=== PATIENT | male | born 2000 | race Hispanic/Latino ===

== ENCOUNTER 2022-03-30 20:15 | Emergency (ER) | payer SELFPAY ==
[2022-03-30 23:22] LABS: Absolute Lymphocytes (CBC) 2.2 K/uL (0.7-4.9); Hematocrit 41.6 % (39.6-49.0); Lymphocytes % 24.7 % (15.3-44.8); MPV 9.2 fL (7.6-11.3); Protime INR 1.13; RBC Red Blood Cell Count 4.56 M/uL (4.33-5.43)
[2022-03-30 23:36] LABS: ALT/SGPT 20 U/L (12-78); AST/SGOT 16 U/L (15-37); Albumin 4.3 g/dL (3.4-5.0); Alkaline Phosphatase 77 U/L (45-117); BUN Blood Urea Nitrogen 17 mg/dL (7-18); Bicarbonate 27 mmol/L (21-32); Bilirubin Total 0.4 mg/dL (0.2-1.0); Glomerular Filtration Rate 113 ml/min (=/>90); Glucose Level 98 mg/dL (74-106); Magnesium 2.2 mg/dL (1.8-2.4); NT PRO-BNP 20 pg/mL (<125); Potassium 4.1 mmol/L (3.5-5.1); Protein, Total 7.3 g/dL (6.4-8.2); Sodium Level 139 mmol/L (136-145); Troponin High Sensitivity 33.9 pg/mL (<58.9)
[2022-03-30 23:43] LABS: Urine Blood Negative (Negative); Urine Glucose Negative (Negative); Urine Protein Trace (Negative); Urine Specific Gravity 1.025 (1.005-1.030)
[2022-03-30 23:46] LABS: Bilirubin Direct < 0.1 mg/dL (0-0.2)
[2022-03-31 00:01] LABS: Barbiturates NEGATIVE (NEGATIVE); Benzodiazepines NEGATIVE (NEGATIVE); Cocaine NEGATIVE (NEGATIVE); METHAMPHETAM NEGATIVE (NEGATIVE); Methadone NEGATIVE (NEGATIVE); Opiates NEGATIVE (NEGATIVE); Phencyclidine NEGATIVE (NEGATIVE); THC Cannibis NEGATIVE (NEGATIVE)
[2022-03-31 00:07] LABS: Creatine Phosphokinase 222 U/L (39-308)
[2022-03-31] MEDS ORDERED: KETOROLAC 30 MG/ML INJ ONE (00:20)
[2022-03-31] MEDS ORDERED: NA CHLORIDE 0.9% 1,000 ML ONE (00:21)
--- NOTE | 2022-03-31 02:45 | ER ---
Nurse's Notes [facility] Name: Deyvi Aceves Age: 21 yrs Sex: Male : 2000 Arrival Date: 03/30/2022 Time: 20:18 Bed 2 Private MD: Diagnosis: SARS-associated coronavirus as the cause of diseases classified elsewhere Presentation: 03/30 20:37 Chief complaint: Patient states: Chest pain radiates to back and SOB since this ld1 morning. Coronavirus screen: At this time, the client does not indicate any symptoms associated with coronavirus-19. Ebola Screen: No symptoms or risks identified at this time. Initial Sepsis Screen: Does the patient meet any 2 criteria? No. Patient's initial sepsis screen is negative. Does the patient have a suspected source of infection? No. Patient's initial sepsis screen is negative. Risk Assessment: Do you want to hurt yourself or someone else? Patient reports no desire to harm self or others. Onset of symptoms was March 30, 2022. 20:37 Method Of Arrival: Ambulatory ld1 20:37 Acuity: SHANA 3 ld1 Triage Assessment: 20:37 General: Appears in no apparent distress. comfortable, Behavior is calm, cooperative, ld1 appropriate for age. Pain: Complains of pain in chest Pain radiates to back Pain currently is 8 out of 10 on a pain scale. Quality of pain is described as pressure. EENT: No signs and/or symptoms were reported regarding the EENT system. Neuro: Level of Consciousness is awake, alert, obeys commands, Oriented to person, place, time, situation. Cardiovascular: Capillary refill < 3 seconds Patient's skin is warm and dry. Rhythm is sinus rhythm. Respiratory: Airway is patent Respiratory effort is even, unlabored. GI: Abdomen is flat, non-distended. Musculoskeletal: Reports pain in chest. Historical: - Allergies: 20:37 No Known Allergies; ld1 - Home Meds: 20:37 None [Active]; ld1 - PMHx: 20:37 None; ld1 - PSHx: 20:37 Appendectomy; ld1 - Immunization history:: Adult Immunizations up to date, Client reports receiving the 2nd dose of the Covid vaccine. - Social history:: Smoking status: Patient denies any tobacco usage or history of. Patient/guardian denies using alcohol. Screenin:15 Abuse screen: Denies threats or abuse. Nutritional screening: No deficits noted. bb Tuberculosis screening: No symptoms or risk factors identified. Fall Risk None identified. Assessment: 22:15 General: Appears in no apparent distress. slender, Behavior is calm, cooperative. bb Neuro: Level of Consciousness is awake, alert, obeys commands, Oriented to person, place, time, situation. Cardiovascular: Capillary refill < 3 seconds Patient's skin is warm and dry. Respiratory: Respiratory effort is even, unlabored, Respiratory pattern is regular. GI: No signs and/or symptoms were reported involving the gastrointestinal system. Derm: Skin is pink, warm \T\ dry. Musculoskeletal: Circulation, motion, and sensation intact. 23:05 Reassessment: pt ambulated with steady gait to the bathroom for a urine sample. bb Vital Signs: 20:37 BP 126 / 74; Pulse 86; Resp 18; Temp 98.8(O); Pulse Ox 99% on R/A; Weight 61.23 kg; ld1 Height 5 ft. 6 in. (167.64 cm); Pain 8/10; 22:28 BP 115 / 70; Pulse 64; Resp 14 S; Pulse Ox 100% on R/A; bb 05 00:44 BP 104 / 63; Pulse 54; Resp 13 S; Pulse Ox 100% on R/A; as6 02:30 BP 109 / 71; Pulse 82 MON; Resp 25 S; Pulse Ox 99% on R/A; as6 0516 20:37 Body Mass Index 21.79 (61.23 kg, 167.64 cm) ld1 ED Course: 03/30 20:18 Patient arrived in ED. kz 20:37 Triage completed. ld1 20:37 Arm band placed on right wrist. EKG completed in triage. Results shown to MD. ld1 22:15 Patient has correct armband on for positive identification. Pulse ox on. NIBP on. bb 22:15 Patient maintains SpO2 saturation greater than 95% on room air. bb 22:22 Job Wilson MD is Attending Physician. mh7 22:37 David Salazar, JOHNNY is Primary Nurse. as6 23:00 Initial lab(s) drawn, by me, sent to lab. COVID swab sent to lab. Flu and/or RSV swab bb sent to lab. Inserted saline lock: 20 gauge in right antecubital area, using aseptic technique. Blood collected. 23:34 XRAY Chest (1 view) In Process Unspecified. EDMS 03/31 01:58 CT Chest For PE Angio In Process Unspecified. EDMS 03:09 No provider procedures requiring assistance completed. IV discontinued, intact, as6 bleeding controlled, No redness/swelling at site. Pressure dressing applied. Administered Medications: 00:24 Drug: Ketorolac 30 mg Route: IVP; Site: right antecubital; as6 03:09 Follow up: Response: No adverse reaction as6 00:24 Drug: NS 0.9% 1000 ml Route: IV; Rate: 1000 ml; Site: right antecubital; as6 03:09 Follow up: Response: No adverse reaction; IV Status: Completed infusion; IV Intake: as6 1000ml Medication: 03:10 VIS not applicable for this client. as6 Intake: 03:09 IV: 1000ml; Total: 1000ml. as6 Outcome: 02:44 Discharge ordered by . [facility] 03:10 Discharged to home ambulatory, with family. as6 03:10 Condition: stable 03:10 Discharge instructions given to patient, family, Instructed on discharge instructions, follow up and referral plans. medication usage, Demonstrated understanding of instructions, follow-up care, medications, Prescriptions given X 4. 03:10 Patient left the ED. as6 Signatures: Dispatcher [employer] Josephine Pizarro RN RN bb Holmes, Maurice, MD MD Gabby Garcia RN RN ld1 David Salazar RN RN as6 Summer Mercado Corrections: (The following items were deleted from the chart) 03/30 20:38 20:37 Home Meds: Unable to obtain; ld1 ld1
--- NOTE | 2022-03-31 02:45 | EDPHYS ---
Physician Documentation [facility] Name: Deyvi Aceves Age: 21 yrs Sex: Male : 2000 Arrival Date: 03/30/2022 Time: 20:18 Bed 2 Private MD: ED Physician Job Wilson HPI: 03/30 22:55 This 21 yrs old Male presents to ER via Ambulatory with complaints of Chest mh7 Pain, Breathing Difficulty. 22:55 The patient or guardian reports chest pain that is located primarily in the substernal mh7 area. The pain radiates to back. Associated signs and symptoms: Pertinent positives: cough, shortness of breath, Pertinent negatives: abdominal pain, diaphoresis, dizziness, headache, lower extremity pain, lower extremity swelling, lightheadedness, nausea, near syncope, palpitations, recent travel, syncope, vomiting. The chest pain is described as sharp. Duration: The patient or guardian reports multiple episodes, that are intermittent, that wax and wane, with no pattern. Modifying factors: The symptoms are alleviated by nothing. the symptoms are aggravated by breathing, cough. Severity of pain: At its worst the pain was moderate today, in the emergency department the pain has improved moderately. Historical: - Allergies: 20:37 No Known Allergies; ld1 - Home Meds: 20:37 None [Active]; ld1 - PMHx: 20:37 None; ld1 - PSHx: 20:37 Appendectomy; ld1 - Immunization history:: Adult Immunizations up to date, Client reports receiving the 2nd dose of the Covid vaccine. - Social history:: Smoking status: Patient denies any tobacco usage or history of. Patient/guardian denies using alcohol. ROS: 22:55 Constitutional: Negative for fever, chills, and weight loss, Eyes: Negative for injury, mh7 pain, redness, and discharge, ENT: Negative for injury, pain, and discharge, Neck: Negative for injury, pain, and swelling, Abdomen/GI: Negative for abdominal pain, nausea, vomiting, diarrhea, and constipation, Back: Negative for injury and pain, : Negative for injury, bleeding, discharge, and swelling, MS/Extremity: Negative for injury and deformity, Skin: Negative for injury, rash, and discoloration, Neuro: Negative for headache, weakness, numbness, tingling, and seizure, Psych: Negative for depression, anxiety, suicide ideation, homicidal ideation, and hallucinations, Allergy/Immunology: Negative for hives, rash, and allergies, Endocrine: Negative for neck swelling, polydipsia, polyuria, polyphagia, and marked weight changes, Hematologic/Lymphatic: Negative for swollen nodes, abnormal bleeding, and unusual bruising. Exam: 22:55 Constitutional: This is a well developed, well nourished patient who is awake, alert, mh7 and in no acute distress. Head/Face: Normocephalic, atraumatic. Eyes: Pupils equal round and reactive to light, extra-ocular motions intact. Lids and lashes normal. Conjunctiva and sclera are non-icteric and not injected. Cornea within normal limits. Periorbital areas with no swelling, redness, or edema. Neck: Trachea midline, no thyromegaly or masses palpated, and no cervical lymphadenopathy. Supple, full range of motion without nuchal rigidity, or vertebral point tenderness. No Meningismus. 22:55 Cardiovascular: Regular rate and rhythm with a normal S1 and S2. No gallops, murmurs, or rubs. Normal PMI, no JVD. No pulse deficits. Respiratory: Lungs have equal breath sounds bilaterally, clear to auscultation and percussion. No rales, rhonchi or wheezes noted. No increased work of breathing, no retractions or nasal flaring. Abdomen/GI: Soft, non-tender, with normal bowel sounds. No distension or tympany. No guarding or rebound. No evidence of tenderness throughout. Back: No spinal tenderness. No costovertebral tenderness. Full range of motion. Skin: Warm, dry with normal turgor. Normal color with no rashes, no lesions, and no evidence of cellulitis. MS/ Extremity: Pulses equal, no cyanosis. Neurovascular intact. Full, normal range of motion. Neuro: Awake and alert, GCS 15, oriented to person, place, time, and situation. Cranial nerves II-XII grossly intact. Motor strength 5/5 in all extremities. Sensory grossly intact. Cerebellar exam normal. Normal gait. Psych: Awake, alert, with orientation to person, place and time. Behavior, mood, and affect are within normal limits. 22:55 Chest/axilla: Inspection: normal, Palpation: tenderness, that is moderate, of the mid-sternal area, that totally reproduces the patient's complaints, Axilla: are normal, Lymph nodes: lymphadenopathy is not appreciated. Vital Signs: 20:37 BP 126 / 74; Pulse 86; Resp 18; Temp 98.8(O); Pulse Ox 99% on R/A; Weight 61.23 kg; ld1 Height 5 ft. 6 in. (167.64 cm); Pain 8/10; 22:28 BP 115 / 70; Pulse 64; Resp 14 S; Pulse Ox 100% on R/A; bb 03/31 00:44 BP 104 / 63; Pulse 54; Resp 13 S; Pulse Ox 100% on R/A; as6 02:30 BP 109 / 71; Pulse 82 MON; Resp 25 S; Pulse Ox 99% on R/A; as6 03/30 20:37 Body Mass Index 21.79 (61.23 kg, 167.64 cm) ld1 MDM: 02:42 Differential diagnosis: acute myocardial infarction, acute pericarditis, anxiety, chest mh7 wall pain, costochondritis, esophagitis, gastritis, gastroesophageal reflux disease (GERD), myocarditis, pericarditis, pleurisy, pneumonia, pneumothorax, pulmonary embolus. HEART Score: History: Slightly Suspicious (0), ECG: Normal (0), Age: < or = 45 years (0), Risk Factors: No Risk Factors Known (0), Troponin: < or = 1 x Normal Limit (0), Total Score = 0. Data reviewed: vital signs, nurses notes, lab test result(s), cardiac enzymes, CBC, electrolytes, Flu: negative COVID positive, EKG, radiologic studies, CT scan, plain films. Data interpreted: Pulse oximetry: on room air is 100 %. Interpretation: normal. Counseling: I had a detailed discussion with the patient and/or guardian regarding: the historical points, exam findings, and any diagnostic results supporting the discharge/admit diagnosis, lab results, radiology results, the need for outpatient follow up. Response to treatment: the patient's symptoms have resolved after treatment, the patient's blood pressure is in an acceptable range, mental status has returned to baseline, the patient no longer shows bradycardia, the patient is not short of breath, the patient is not tachycardic, the patient's pain is gone, the patient's temperature has normalized, the patient is now symptom free, patient is well hydrated. 02:44 Patient medically screened. [facility] 03/30 22:47 Order name: Basic Metabolic Panel; Complete Time: 00:49 [facility] 03/30 22:47 Order name: CBC with Diff; Complete Time: 23:50 [facility] 03/30 22:47 Order name: LFT's; Complete Time: 00:49 [facility] 03/30 22:47 Order name: Magnesium; Complete Time: 00:49 [facility] 03/30 22:47 Order name: NT PRO-BNP; Complete Time: 00:49 [facility] 03/30 22:47 Order name: PT-INR; Complete Time: 00:49 [facility] 03/30 22:47 Order name: Troponin HS; Complete Time: 00:49 [facility] 03/30 22:49 Order name: COVID-19 SARS RT PCR (Document "Date of Onset" if Symptomatic); Complete [facility] Time: 00:49 03/30 22:49 Order name: Influenza Screen (a \\T\\ B); Complete Time: 23:50 [facility] 03/30 22:49 Order name: UDS; Complete Time: 00:49 [facility] 03/30 23:43 Order name: Urine Dipstick-Ancillary; Complete Time: 23:50 [facility] 03/30 23:57 Order name: D-Dimer; Complete Time: 00:49 [facility] 03/30 21:37 Order name: EKG - Nurse/Tech; Complete Time: 21:37 [facility] 03/30 22:47 Order name: XRAY Chest (1 view) [facility] 03/30 22:47 Order name: EKG; Complete Time: 22:47 [facility] 03/30 22:47 Order name: Cardiac monitoring; Complete Time: 22:49 [facility] 03/30 22:47 Order name: IV Saline Lock; Complete Time: 23:09 [facility] 03/30 22:47 Order name: Labs collected and sent; Complete Time: 23:09 [facility] 03/30 22:47 Order name: O2 Per Protocol; Complete Time: 22:50 [facility] 03/30 22:47 Order name: O2 Sat Monitoring; Complete Time: 22:50 [facility] 03/30 23:57 Order name: Creatine Phosphokinase; Complete Time: 00:49 [facility] 03/31 01:00 Order name: CT Chest For PE Angio mh7 Administered Medications: 00:24 Drug: Ketorolac 30 mg Route: IVP; Site: right antecubital; as6 03:09 Follow up: Response: No adverse reaction as 00:24 Drug: NS 0.9% 1000 ml Route: IV; Rate: 1000 ml; Site: right antecubital; as6 03:09 Follow up: Response: No adverse reaction; IV Status: Completed infusion; IV Intake: as6 1000ml Disposition Summary: 03/31/22 02:44 Discharge Ordered Location: Home [facility] Problem: new [facility] Symptoms: have improved [facility] Condition: Stable [facility] Diagnosis - SARS-associated coronavirus as the cause of diseases classified elsewhere [facility] Followup: [facility] - With: Private Physician - When: 1 - 2 days - Reason: Worsening of condition, Recheck today's complaints, Continuance of care, Re-evaluation by your physician Discharge Instructions: - Discharge Summary Sheet [facility] - COVID-19 [facility] - 10 Things You Can Do to Manage Your COVID-19 Symptoms at Home - [place] [address] - COVID-19: Quarantine vs. Isolation - [place] [address] - Prevent the Spread of COVID-19 if You Are Sick - [place] [address] Forms: - Medication Reconciliation Form [facility] - Thank You Letter [facility] - Antibiotic Education [facility] - Prescription Opioid Use [facility] Prescriptions: - albuterol sulfate 90 mcg/actuation Inhalation HFA aerosol inhaler - inhale 1 puff by INHALATION route every 4-6 hours As needed; 1 Inhaler; [facility] Refills: 0, Product Selection Permitted - aspirin 81 mg Oral tablet,delayed release (DR/EC) - take 1 tablet by ORAL route once daily; 30 tablet; Refills: 0, Product [facility] Selection Permitted - Tessalon Perles 100 mg Oral Capsule - take 1 capsule by ORAL route every 8 hours As needed; 15 capsule; Refills: 0, [facility] Product Selection Permitted - Zithromax Z-Chris 250 mg Oral Tablet - take 1 tablet by ORAL route as directed for 5 days Day 1 - take two (2) tablets [facility] one time. Day 2, 3, 4 , 5 take one (1) tablet once daily.; 6 tablet; Refills: 0, Product Selection Permitted Signatures: Dispatcher [employer] Job Car MD MD [facility] Gabby Perdomo RN RN ld1 David Salazar RN RN as6 Shavon Cintron PA PA sb3 Corrections: (The following items were deleted from the chart) 03/30 20:38 20:37 Home Meds: Unable to obtain; ld1 ld1 23:56 23:51 D-DIMER+COAG.LAB.BRZ ordered. EDMS EDMS 23:56 23:51 CREATINE PHOSPHOKINASE+C.LAB.BRZ ordered. EDMS EDMS
[2022-03-31 03:30] VITALS: TEMP 98.8
[2022-03-31 03:36] VITALS: BP 109/71; O2SAT 99
--- NOTE | 2022-03-31 09:34 | EKG ---
Test Date: 2022-03-30 Test Time: 20:35:29 Security System Technician: JANES MEASUREMENT RESULTS: Intervals: Rate: 67 ID: [id number] QRSD: 88 QT: 362 QTc: 382 [place]: P: 70 ID: [id number] QRS: 86 T: 72 INTERPRETIVE STATEMENTS: Normal sinus rhythm Normal ECG No previous ECG available for comparison Electronically Signed On 03-31-22 09:32:06 CDT by Naveen Hammond
--- NOTE | 2022-03-31 12:59 | RAD REPORT ---
EXAM DESCRIPTION: RAD - Chest Single View - 03/30/2022 11:32 pm CLINICAL HISTORY: 21-year-old male with chest pain. TECHNIQUE: Single view, AP portable chest was obtained. COMPARISON: None. FINDINGS: Unremarkable cardiac and mediastinal silhouette. Heart size is normal. Lungs are clear without focal opacity, pneumothorax or pleural effusions. The visualized bones are within normal limits. IMPRESSION: No acute cardiopulmonary abnormalities. Electronically signed by: Arlette Bronson MD 03/30/2022 11:42 PM CDT Due to temporary technical issues with the PACS/Fluency reporting system, reports are being signed by the in house radiologists without review as a courtesy to insure prompt reporting. The interpreting radiologist is fully responsible for the content of the report.
--- NOTE | 2022-03-31 17:00 | RAD REPORT ---
EXAM DESCRIPTION: CT - Chest For Pe Angio - 03/31/2022 6:29 am CLINICAL HISTORY: Chest pain TECHNIQUE: Axial computed tomographic angiography images of the chest with intravenous contrast. S agittal and coronal reformatted images were created and reviewed. This CT exam was performed using one or more of the following dose reduction techniques: automated exposure control, adjustment of t he mA and/or kV according to patient size, and/or use of iterative reconstruction technique. MIP reconstructed images were created and reviewed. COMPARISON: No relevant prior studies available. FINDINGS: Pulmonary arteries: Unremarkable. No pulmonary embolism. Aorta: No acute findings. No thoracic aortic aneurysm. Lungs: Unremarkable. No mass. No consolidation. Pleural space: Unremarkable. No significant effusion. No pneumothorax. Heart: Unremarkable. No cardiomegaly. No significant pericardial effusion. No evidence of RV dysfunction. Mediastinum: Soft tissue density in the anterior mediastinum thought to represent residual thymic t issue. Bones/joints: No acute fracture. No dislocation. Soft tissues: Unremarkable. Lymph nodes: Unremarkable. No enlarged lymph nodes. IMPRESSION: No pulmonary embolic disease. Electronically signed by: Katty Wise MD 03/31/2022 2:29 AM CDT Due to temporary technical issues with the PACS/Fluency reporting system, reports are being signed by the in house radiologists without review as a courtesy to insure prompt reporting. The interpreting radiologist is fully responsible for the content of the report.
== END 2022-03-31 03:10 | disposition home or self-care (01) ==
LOC: ER 20:15
DX: U07.1 COVID-19 (principal)
CPT/HCPCS: 36415; 71045; 71275; 80048; 80076; 80307; 81003; 82550; 83735; 83880; 84484; 85025; 85379; 85610; 87804; 93005; 96361; 96374; 99285; J7030; Q9967; U0003